=== PATIENT | female | born 1980 | race African-American/Black ===

== ENCOUNTER 2018-02-01 11:32 | Emergency (ER) | payer OTHER ==
[~2018-02-01] VITALS: Ht 167.6 cm; Wt 80.9 kg
[2018-02-01 11:37] VITALS: Ht 167.6 cm; Wt 80.9 kg
[2018-02-01] MEDS ORDERED: TORADOL10 MG PO (13:33)
[2018-02-01 13:47] VITALS: BP 115/78
== END 2018-02-01 13:48 | disposition home or self-care (01) ==
LOC: D.ER 11:32
DX: M54.2 Cervicalgia (principal); M54.5 Low back pain; M25.521 Pain in right elbow; V43.52XA Car driver injured in collision with other type car in traffic accident, initial encounter; Y93.89 Activity, other specified; Y92.410 Unspecified street and highway as the place of occurrence of the external cause